=== PATIENT | female | born 1930 | race Caucasian/White ===

== ENCOUNTER 2020-01-23 15:20 | Emergency (ER) | payer MEDICARE ==
[~2020-01-23] VITALS: Ht 160 cm; Wt 62.0 kg
[2020-01-23] MEDS ORDERED: OXYMETAZOLINE NASAL SPRAY 0.05%,30ML ONE (15:41)
--- NOTE | 2020-01-23 15:55 | NUR ---
NOSE CLIP IN PLACE, BLEEDING CONTROLLED. WARM BLANKET PROVIDED, CALL LIGHT WITHIN REACH. AFRIN TO L NOSTRIL PER ERP ORDER. BP CUFF, PULSE ON IN PLACE.
[2020-01-23] MEDS ORDERED: OXYMETAZOLINE NASAL SPRAY 0.05%, 15ML NAS ONE (16:00)
[2020-01-23 17:24] VITALS: BP 132/61
== END 2020-01-23 17:35 | disposition home or self-care (01) ==
LOC: ED 16:23
DX: R04.0 Epistaxis (principal); I25.10 Atherosclerotic heart disease of native coronary artery without angina pectoris
CPT/HCPCS: 99282; 99283